=== PATIENT | male | born 1975 | race Caucasian/White ===

== ENCOUNTER 2021-10-23 03:47 | Emergency (ER) | payer BC, SELFPAY ==
--- NOTE | ~2021-10-23 | CT_ITS ---
EXAMINATION: CT abdomen pelvis wo con DATE: 10/23/2021 07:08 INDICATION: Right flank and testicle pain TECHNIQUE: Computed tomography (CT) of the abdomen and pelvis was performed without intravenous contr ast. The dose-length product (DLP) was 369.82 mGy-cm. Automated exposure control and iterative recons truction technique were employed. COMPARISON: None FINDINGS: Minimal dependent atelectasis is present in the lung bases. The heart size is normal. The l iver, spleen, pancreas, gallbladder, and adrenal glands are normal. There is a 3 mm stone at the righ t ureterovesicular junction which causes moderate right hydroureteronephrosis. There is a moderate am ount of right perinephric fat stranding. There are two nonobstructing stones of the right kidney anali uring up to 2 mm. There are two nonobstructing stones of the left kidney lower pole measuring up to 3 mm. A circumaortic left renal vein is noted. No pathologically enlarged abdominal or pelvic lymph no melvi are identified. There is no free intraperitoneal gas or evidence of bowel obstruction. There is m oderate lumbar spondylosis. IMPRESSION: 1. 3 mm stone at the right ureterovesicular junction causing moderate right hydroureteronephrosis. 2. Bilateral nonobstructing nephrolithiasis. Reviewed, dictated and finalized at location A. IMPRESSION: 1. 3 mm stone at the right ureterovesicular junction causing moderate right hyd roureteronephrosis. 2. Bilateral nonobstructing nephrolithiasis.
--- NOTE | ~2021-10-23 | US_ITS ---
EXAMINATION: US scrotum doppler EXAM DATE: 10/23/2021 05:02 INDICATION: Rule out torsion. TECHNIQUE: Multiple grayscale and Doppler images of the testicles and scrotum were obtained bilateral ly. There is no prior study for comparison. FINDINGS: Right testicle measures 3.9 x 3.0 x 2.4 cm with microlithiasis but is otherwise morphologically avery l. Low resistance Doppler flow confirmed. The epididymis is unremarkable. Trace hydrocele. No varico anais. Left testicle measures 3.7 x 2.5 x 2.4 cm with microlithiasis but is otherwise morphologically normal . Low resistance Doppler flow confirmed. Left epididymal head cyst measuring 1.3 cm. There is no hy drocele or varicocele. IMPRESSION: 1. Testicular microlithiasis. 2. Trace right hydrocele. 3. No torsion. Reviewed, dictated and finalized at location B.
[2021-10-23 03:56] VITALS: BP 179/97; PULSE 61; RESP 17; TEMP 37.1; O2SAT 100
[2021-10-23 04:21] LABS: Basophils Absolute Auto 0.1 K/mm3 (0.0-0.1); Basophils Percent Auto 0.8 % (0.2-1.2); Eosinophils Absolute Auto 0.2 K/mm3 (0-0.3); Eosinophils Percent Auto 1.1 % (0-4.4); Hematocrit 46.7 % (42.0-52.0); Hemoglobin 16.4 g/dL (14.0-18.0); Immature Granulocyte Absolute 0.06 K/mm3 (0.00-0.031); Immature Granulocyte Percent A 0.4 % (0-0.5); Lymphocytes Absolute Auto 3.47 K/mm3 (0.9-3.2); Lymphocytes Percent Auto 21.7 % (18.3-44.2); Mean Corpuscular HGB Conc 35.1 g/dl (32-36); Mean Corpuscular Hemoglobin 30.5 pg (26-34); Mean Platelet Volume 10.8 fl (7.4-10.4); Monocytes Absolute Auto 0.9 K/mm3 (0.1-0.6); Monocytes Percent Auto 5.4 % (2.6-8.5); Neutrophils Absolute Auto 11.3 K/mm3 (1.3-6.7); Neutrophils Percent Auto 70.6 % (45.5-73.1); Platelet Count Result 306 k/mm3 (150-375); Red Blood Count 5.37 M/mm3 (4.6-6.20); Red Cell Distribution Width 12.2 % (11.5-14.5)
--- NOTE | 2021-10-23 04:30 | ED.GENADULT ---
HPI - General Adult General Chief complaint: Urogenital-Male Stated complaint: right testicle swelling and right flank pain Time Seen by Provider: 10/23/21 03:57 Source: patient and family Mode of arrival: ambulatory Limitations: no limitations History of Present Illness HPI narrative: 46-year-old male presented to emergency department for evaluation of right testicle and right flank pain. Patient states when he woke up he had right-sided testicular pain when he was attempting to urinate. Patient states he felt that his testicle was swollen and tender to the touch. Patient states throughout the course of the day when he was at work he had worsening right lower flank pain. Patient states due to the amount of pain he was having he began hyperventilating, had some arm tingling with some associated nausea and vomiting. Patient has no prior history of kidney stones. Patient denies any hematuria. Patient denies any falls or testicular injuries. Patient does have a history of vasectomy approximately 20 years ago. Related Data Allergies Allergy/AdvReac Type Severity Reaction Status Date / Time Penicillins Allergy Severe hives Verified 11/30/09 10:50 Review of Systems Review of Systems: CONSTITUTIONAL: Denies fever, chills, or sweats. EYES: Denies visual changes, redness, or discharge. ENT: Denies rhinorrhea, congestion, sore throat, or otalgia. CARDIOVASCULAR: Denies chest pain, palpitations, or edema. RESPIRATORY: Denies cough or dyspnea. GASTROINTESTINAL: Denies abdominal pain, nausea, vomiting, or diarrhea. GENITOURINARY: see hpi SKIN: Denies rash or itching. MUSCULOSKELETAL: Denies back pain, joint pain, or myalgia. Exam Narrative: APPEARANCE: Discomfort due to flank pain HEAD: normocephalic, atraumatic. EYES: PERRLA/EOMI, conjunctivae clear. NOSE: Normal no drainage NECK: Supple. No adenopathy, no masses. RESPIRATORY: Airway patent, respirations nonlabored. Clear to auscultation bilaterally, no rales, rhonchi, wheezing. CARDIOVASCULAR: Regular rate and rhythm without murmurs rubs or gallops. ABDOMINAL: Soft, nontender, nondistended, normal bowel sounds MUSCULOSKELETAL: Moves all extremities. Strength/ROM intact, No edema, No calf tenderness. NEURO: Alert. Cranial nerves II through XII intact. Grossly intact SKIN: Warm, dry. Normal Color Course Course Emergency Course: Patient was updated on the results of the ultrasound and normal findings. Patient is still having right lower flank pain that radiates around to his right lower quadrant. Patients pain is not reproducible with palpation. Patient does require additional medications for pain control. IMPRESSION: 1. 3 mm stone at the right ureterovesicular junction causing moderate right hydroureteronephrosis. 2. Bilateral nonobstructing nephrolithiasis. Patient and family were updated on the results of the CT scan and plan for treatment. All questions and concerns were addressed. Patient was well-appearing at time of discharge. Patient was provided [place] for pain control, Flomax up at this time and a urine strainer to collect the stone. Patient was provided urology follow-up. Vital Signs Vital signs: Vital Signs Temperature 98.8 F 10/23/21 03:56 Pulse Rate 61 10/23/21 03:56 Respiratory Rate 17 10/23/21 03:56 Blood Pressure 179/97 H 10/23/21 03:56 Pulse Oximetry 100 10/23/21 03:56 Temperature 98.8 F 10/23/21 03:56 Pulse Rate 54 L 10/23/21 08:07 Respiratory Rate 22 H 10/23/21 08:07 Blood Pressure 170/95 H 10/23/21 06:03 Pulse Oximetry 99 10/23/21 08:07 Medical Decision Making Vital Signs Vital Signs: Vital Signs Temperature 98.8 F 10/23/21 03:56 Pulse Rate 61 10/23/21 03:56 Respiratory Rate 17 10/23/21 03:56 Blood Pressure 179/97 H 10/23/21 03:56 Pulse Oximetry 100 10/23/21 03:56 Temperature 98.8 F 10/23/21 03:56 Pulse Rate 54 L 10/23/21 08:07 Respiratory Rate 22 H 10/23/21 08:07 Blood Pressure 170/9
[2021-10-23] MEDS: ONDANSETRON INJ 4 MG/2 ML VIAL IV PUSH (04:31)
[2021-10-23] MEDS: SODIUM CHLORIDE 0.9% IV 1,000 ML 999 ML IV CONT (04:31)
[2021-10-23] MEDS: HYDROmorphone HCL INJ (*CRX) 1 MG/ML SYR IV PUSH ×2 (04:34→07:14)
[2021-10-23 05:13] LABS: Alanine Aminotransferase 25 U/L (4-50); Albumin Level 4.5 g/dL (3.5-5.1); Alkaline Phosphatase 71 U/L (38-126); Anion Gap 10 mmol/L (8-16); Aspartate Amino Transferase 34 U/L (17-59); Bilirubin,Total 0.8 mg/dL (0.2-1.3); Blood Urea Nitrogen 16 mg/dL (9-20); Carbon Dioxide 23 mmol/L (22-30); Chloride 105 mmol/L (98-107); Estimated CRCL calculation 80 ml/min; Estimated Glomerular Filt Rate > 60; Glucose 118 mg/dL (65-110); Sodium 138 mmol/L (137-145)
[2021-10-23 06:03] VITALS: BP 170/95; PULSE 70; RESP 18; O2SAT 99
[2021-10-23 06:21] LABS: Appearance Urine Clear (Clear); Bilirubin Urine Negative (Negative); Color Urine Yellow (Yellow); Glucose Urine UA Negative (Negative); Ketones Urine Trace mg/dL (Negative); Leukocyte Esterase Ur Negative LEU/UL (Negative); Nitrate Urine Negative (Negative); Protein Urine 1+ mg/dL (Negative); Specific Grav Ur 1.025 (1.001-1.035); Urobilinogen Urine 0.2 mg/dL (<2.0); pH Urine 7.5 (5.0-9.0)
[2021-10-23 06:27] LABS: Add Urine Microscopic? YES; Blood Urine Trace-Intact (Negative)
[2021-10-23 06:28] LABS: Calcium Oxalate Crystals Urine Present /hpf; Mucus Urine Few /lpf; RBC Urine 0-2 /hpf (0-2)
[2021-10-23] MEDS: TAMSULOSIN HCL 0.4 MG CAPSULE PO (07:41)
[2021-10-23] MEDS: HYDROcodone/acetaminophen (*CRX) 5-325 MG TABLET 1 TAB PO (07:42)
[2021-10-23 08:07] VITALS: PULSE 54; RESP 22; O2SAT 99
== END 2021-10-23 08:10 | disposition home or self-care (01) ==
PROVIDERS: Emergency Provider Emergency Medicine
DX: N13.2 Hydronephrosis with renal and ureteral calculous obstruction (principal)
CPT/HCPCS: 36415; 74176; 76870; 80053; 81001; 85025; 93976; 96361; 96374; 96375; 96376; 99284; A9270; J1170; J2405; J7030